=== PATIENT | female | born 2000 | race American Indian/Alaskan Native ===

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

== ENCOUNTER 2020-08-28 02:30 | Emergency (ER) | payer SELFPAY ==
[2020-08-28 04:22] LABS: Bacteria,Urine 1+ /HPF (Negative); Bilirubin,Urine NEG (Negative); Blood,Urine NEG (Negative); Color,Urine Yellow (Yellow); HCG Qualitative,Urine Negative (Negative); Mucus,Urine 2+ /HPF; Urobilinogen,Urine < 2.0 mg/dL (<2.0)
--- NOTE | 2020-08-28 04:35 | Emergency Department Report ---
ED General Adult HPI - General Chief complaint: Urogenital-Female Stated complaint: BURNING WHILE URINATING Time Seen by Provider: 08/28/20 04:20 Source: patient Mode of arrival: Ambulatory Limitations: No Limitations - History of Present Illness Initial comments: 20-year-old female patient presents to emergency department with complaints of burning with urination for 3 days. Describe "tingling" sensation. No current antibiotic use. Patient is not currently on her menstrual cycle. Denies fever, chills, nausea, vomiting, diarrhea, constipation, abdominal pain, pelvic pain. Denies all other complaints at this time. - Related Data Previous Rx's Medication Instructions Recorded Last Taken Type Sulfamethoxazole/Trimethoprim 1 each PO BID #6 tablet 06/03/17 Unknown Rx [Bactrim DS TAB] Docusate Sodium [Stool Softener] 100 mg PO DAILY #20 capsule 11/27/17 Unknown Rx Hydrocortisone [Anusol-Hc] 30 gm RC BID #28 cream..g. 11/27/17 Unknown Rx polyethylene glycoL 3350 [Miralax 17 gm PO BID #14 packet 11/27/17 Unknown Rx 3350] Cetirizine HCl [ZyrTEC] 10 mg PO QAM 14 Days #14 capsule 12/26/17 Unknown Rx Fluticasone [Flonase] 1 spray NS QDAY 14 Days #1 bottle 12/26/17 Unknown Rx Ibuprofen [Motrin] 600 mg PO Q8H PRN #12 tablet 12/26/17 Unknown Rx Neomy/Polymyx B/Hc (Otic) Soln 4 drops .ROUTE Q8H 7 Days #1 bottle 12/26/17 Unknown Rx [Cortisporin (Otic) Soln] Phenazopyridine [Pyridium] 200 mg PO TID #6 tab 01/01/18 Unknown Rx Sulfamethoxazole/Trimethoprim 1 each PO BID #6 tablet 01/01/18 Unknown Rx [Bactrim DS TAB] Clindamycin [Clindamycin CAP] 300 mg PO Q8H 10 Days #30 cap 02/03/18 Unknown Rx Ibuprofen [Motrin 800 MG tab] 800 mg PO TID PRN #12 tablet 02/03/18 Unknown Rx cephALEXin [Keflex] 500 mg PO Q12HR 5 Days cap 08/28/20 Unknown Rx Allergies Allergy/AdvReac Type Severity Reaction Status Date / Time pollen extracts Allergy Swelling Verified 01/01/18 17:36 nuts Allergy Swelling Uncoded 01/01/18 17:36 ED Review of Systems ROS: Stated complaint: BURNING WHILE URINATING Other details as noted in HPI Other: GENERAL: Negative for fever. CARDIOVASCULAR: Negative for chest pain. PULMONARY: Negative for shortness of breath. GASTROINTESTINAL: Negative for abdominal pain. GENITOURINARY: Positive for dysuria. MUSCULOSKELETAL: Negative for back pain. NEUROLOGICAL: Negative for headache. INTEGUMENTARY: Negative for rash. ED Past Medical Hx - Past Medical History Previous Medical History?: Yes Hx Hypertension: No Hx Diabetes: No Hx Deep Vein Thrombosis: No Hx Renal Disease: No Hx Sickle Cell Disease: No Hx Headaches / Migraines: Yes Hx Seizures: No Hx Asthma: No Hx HIV: No - Surgical History Past Surgical History?: No - Social History Smoking Status: Current Every Day Smoker Substance Use Type: None - Medications Home Medications: Home Medications Medication Instructions Recorded Confirmed Last Taken Type Sulfamethoxazole/Trimethoprim 1 each PO BID #6 tablet 06/03/17 Unknown Rx [Bactrim DS TAB] Docusate Sodium [Stool Softener] 100 mg PO DAILY #20 capsule 11/27/17 Unknown Rx Hydrocortisone [Anusol-Hc] 30 gm RC BID #28 cream..g. 11/27/17 Unknown Rx polyethylene glycoL 3350 [Miralax 17 gm PO BID #14 packet 11/27/17 Unknown Rx 3350] Cetirizine HCl [ZyrTEC] 10 mg PO QAM 14 Days #14 capsule 12/26/17 Unknown Rx Fluticasone [Flonase] 1 spray NS QDAY 14 Days #1 bottle 12/26/17 Unknown Rx Ibuprofen [Motrin] 600 mg PO Q8H PRN #12 tablet 12/26/17 Unknown Rx Neomy/Polymyx B/Hc (Otic) Soln 4 drops .ROUTE Q8H 7 Days #1 bottle 12/26/17 Unknown Rx [Cortisporin (Otic) Soln] Phenazopyridine [Pyridium] 200 mg PO TID #6 tab 01/01/18 Unknown Rx Sulfamethoxazole/Trimethoprim 1 each PO BID #6 tablet 01/01/18 Unknown Rx [Bactrim DS TAB] Clindamycin [Clindamycin CAP] 300 mg PO Q8H 10 Days #30 cap 12/17/18 Unknown Rx Ibuprofen [Motrin 800 MG tab] 800 mg PO TID PRN #12 tablet 02/03/18 Unknown Rx cephALEXin [Keflex] 500 mg PO Q12HR 5 Days cap 08/28/20 Unknown Rx ED Physical Exam - General Limitations: No Limitations - Other Other exam information: General: Awake, appropriately interactive, no acute distress. Neck: Supple. Full range of motion intact. Cardiovascular: Normal peripheral perfusion. Pulmonary: No respiratory distress. Patient is speaking normally without use of accessory muscles. Abdomen: Soft, nontender, nondistended. Skin: No apparent rashes or lesions. Neurological: No facial asymmetry. Speech is clear. Follows commands. Patient is alert and oriented. Musculoskeletal: Moves all four extremities spontaneously with normal range of motion. Psych: Cooperative. Appropriate mood and affect. ED Course Vital Signs 08/28/20 02:54 Temperature 98.2 F Pulse Rate 86 Respiratory 16 Rate Blood Pressure 131/82 O2 Sat by Pulse 96 Oximetry ED Medical Decision Making - Medical Decision Making Differential diagnosis including but not limited to: urinary tract infection, pyelonephritis, nephrolithiasis, related complication Patient presents to the emergency department with complaints of dysuria. Urinalysis is highly contaminated although some white blood cells are present. test is negative. Patient is afebrile, no abdominal pain, no vaginal discharge. No clinical indication for further diagnostic work-up on an emergent basis at this time. Patient will be discharged home with antibiotics and referred to primary care provider for close outpatient follow-up. Patient expressed understanding and is agreeable to plan of care. Strict return precautions provided. Repeat exam is unremarkable and benign. History, exam, diagnostic testing, and current condition do not suggest worrisome pathology to warrant further testing, continued ED treatment, admission, or surgical evaluation at this point. Given the low probability of a significant medical illness, it would be more likely to result in harm than benefit to perform further testing at this stage. Discussed findings, presumptive diagnosis, need for follow-up and specific signs/symptoms that should prompt immediate return to the emergency department. Instructions were explained in detail to the patient in addition to giving written discharge information. Patient expressed understanding and was given the opportunity to ask questions, all of which were satisfactorily answered prior to discharge home. Critical care attestation.: If time is entered above; I have spent that time in minutes in the direct care of this critically ill patient, excluding procedure time. ED Disposition Clinical Impression: Urinary tract infection Qualifiers: Urinary tract infection type: site unspecified Hematuria presence: with hematuria Qualified Code(s): N39.0 - Urinary tract infection, site not specified; R31.9 - Hematuria, unspecified Disposition: DC- TO HOME OR SELFCARE Is pt being admited?: No Does the pt Need Aspirin: No Condition: Stable Instructions: Urinary Tract Infection, Adult, [id number] Additional Instructions: Take Keflex with food as directed. Increase your dietary intake of probiotic rich foods while taking this medication. Follow-up with primary care provider this week. Call tomorrow to schedule appointment. See referral information below. Return to the emergency department immediately for new or worsening symptoms. Prescriptions: cephALEXin [Keflex] 500 mg PO Q12HR 5 Days cap Referrals: LD WILKINSON MD [Staff Physician] - 3-5 Days [facility] [Provider Group] - 3-5 Days Time of Disposition: 04:35
[2020-08-28 04:45] VITALS: BP 119/52
== END 2020-08-28 04:46 | disposition home or self-care (01) ==
LOC: ED 02:30
DX: N39.0 Urinary tract infection, site not specified (principal); G43.909 Migraine, unspecified, not intractable, without status migrainosus; F17.200 Nicotine dependence, unspecified, uncomplicated; Z91.010 Allergy to peanuts; Z79.899 Other long term (current) drug therapy; Z91.09 Other allergy status, other than to drugs and biological substances
CPT/HCPCS: 81001; 81025; 87086; 99283